=== PATIENT | male | born 1925 | race Caucasian/White ===

== ENCOUNTER 2017-07-12 22:21 | Inpatient (IN) | payer OTHER ==
--- NOTE | 2017-07-12 22:33 | EDPHY ---
H & P HPI/ROS: HPI CHIEF COMPLAINT: Nausea, vomiting, abdominal pain, bladder surgery yesterday at [facility]. HISTORY OF PRESENT ILLNESS: This patient 89-year-old male who presents emergency room with nausea vomiting x5 episodes nonbloody after having bladder surgery yesterday at [facility]. States he had surgery yesterday was kept overnight and released today. Upon being released felt nauseous and had vomiting. He denies chest pain or shortness of breath however the vomiting has persisted this evening. He does have a flank pain. And some suprapubic low abdominal pain. He tells me a bladder tumor removed. He has had surgery before. Past Medical History: Hypertension, hyperlipidemia, AAA surgery, renal CA, BPH , bladder CA Past Surgical History: AAA repair, bladder surgery Social History: Lives locally, son at bedside denies drugs alcohol tobacco products. Family History: Noncontributory. ROS REVIEW OF SYSTEMS: A comprehensive 10 point review of systems is otherwise negative aside from elements mentioned in the history of present illness. Exam Constitutional triage nursing summary reviewed, vital signs reviewed, awake/ alert. Eyes normal conjunctivae and sclera, EOMI, PERRLA. HENT normal inspection, atraumatic, moist mucus membranes, no epistaxis, neck supple/ no meningismus, no raccoon eyes. Respiratory clear to auscultation bilaterally, normal breath sounds, no respiratory distress, no wheezing. Cardiovascular rate normal, regular rhythm, no murmur, no edema, distal pulses normal. Gastrointestinal soft, non-tender, no rebound, no guarding, normal bowel sounds, no distension, no pulsatile mass. Genitourinary no CVA tenderness. Musculoskeletal no midline vertebral tenderness, full range of motion, no calf swelling, no tenderness of extremities, no meningismus, good pulses, neurovascularly intact. Skin pink, warm, & dry, no rash, skin atraumatic. Neurologic awake, alert and oriented x 3, AAOx3, moves all 4 extremities equally, motor intact, sensory intact, CN II-XII intact, normal cerebellar, normal vision, normal speech. Psychiatric normal mood/affect. Heme/Lymph/Immune no lymphadenopathy. Differential Diagnosis: Includes but is not limited to in a particular order bowel obstruction, surgical ileus, urinary tract infection, electrolyte disturbance, infection, sepsis, bacteremia Medical Decision Making: Plan for this patient IV establishment IV fluid bolus , Zofran for nausea, KUB x-ray, ultrasound kidney, blood work, and re-evaluate also consult Urology from [place]. Re-evaluation: 1245AM: Patient vomited again here in the emergency room. He has been given IV Zofran 4 mg x2. IV fluid bolus. It is noted he has an elevated creatinine and BUN. Urinalysis indicates UTI. Urine culture ordered. Blood cultures ordered. Lactic acid less than 2. He is afebrile. IV Rocephin has been ordered. Will consult Urology. I did receive records from [facility]. he was seen by Dr. Kris Lion, he has transitional cell carcinoma of the bladder. He underwent transurethral resection of large bladder tumor greater than 5 cm. He has a history of recurrent transitional cell carcinoma bladder. This was performed on July 11. 0107AM: Spoke with Dr. Lion, Recommends admission of this patient. Is okay with admission here. IV hydrate. CR 1.79. 0140AM: Patient remission. Reason for admission acute kidney injury, dehydration, urinary tract infection. Vital signs have been stable. No hypotension. Ordered 2 L of fluid normal saline 1 g of Rocephin. Spoke with the hospitalist service Dr. Anthony agrees to admit. Ultrasound of the renal. The results of the study are Right sided hydro I discussed the results of this study with the radiologist Dr. Villanueva. Source: Patient Constitutional: Initial Vital Signs Temperature (C) 36.5 C 07/12/17 22:31 Heart Rate 100 07/12/17 22:31 Respiratory Rate 20 07/12/17 22:31 Blood Pressure 161/83 H 07/12/17 22:31 O2 Sat (%) 93 07/12/17 22:31 O2 Delivery Mode Room Air O2 (L/minute) 2 Allergies/Adverse Reactions: mitomycin Allergy (Verified 07/12/17 22:30) Home Medications: Medication Instructions Recorded Diazepam [Valium 5 MG (*)] 5 mg PO TID 07/12/17 Hydrocodone/Acetaminophen [[place] 1 - 2 tab PO Q4H 07/12/17 5/325 (*)] Levothyroxine [Synthroid 75 mcg 75 mcg PO DAILY06 07/12/17 (*)] Ranitidine HCl [Zantac] 150 mg PO HS 07/12/17 Rosuvastatin Calcium [Crestor] 10 mg PO HS 07/12/17 Medical Decision Making - Data Points Laboratory Results: Laboratory Results 07/12/17 23:00 07/12/17 23:00 Medications Given: Acetaminophen (Tylenol) 650 mg PO Q4HRS PRN PRN Reason: Pain, Mild/Fever, Can Take PO Stop: 01/09/18 03:49 Last Admin: 07/13/17 12:42 Dose: 650 mg Hydrocodone Bitart/Acetaminophen ([place] 5/325) 2 tab PO Q4H RICARDO Stop: 07/23/17 18:29 Last Admin: 07/13/17 18:57 Dose: Not Given Heparin Sodium (Porcine) (Heparin Sc Injection) 5,000 unit SC 0600,1400,2200 [facility] Stop: 01/09/18 05:59 Last Admin: 07/13/17 14:11 Dose: Not Given Hydromorphone HCl (Dilaudid) 0.2 - 0.4 mg IVP Q4HRS PRN PRN Reason: Pain, Severe Unable to Take PO Stop: 07/23/17 03:49 Last Admin: 07/13/17 07:46 Dose: 0.2 mg Pantoprazole Sodium 40 mg/ (Sodium Chloride) 100 mls @ 200 mls/hr IV BID RICARDO Stop: 01/09/18 20:59 Last Admin: 07/13/17 20:33 Dose: 100 mls Ondansetron HCl (Zofran) 4 mg IVP Q4HRS PRN PRN Reason: Nausea/Vomiting, Can't Take PO Stop: 01/09/18 03:49 Last Admin: 07/13/17 18:08 Dose: 4 mg Rosuvastatin Calcium (Crestor) 10 mg PO HS [facility] Stop: 01/09/18 20:59 Last Admin: 07/13/17 20:33 Dose: 10 mg Discontinued Medications Sodium Chloride (Ns) 1,000 mls @ 0 mls/hr IV EDNOW ONE; Wide Open PRN Reason: Protocol Stop: 07/12/17 23:05 Last Admin: 07/12/17 23:11 Dose: 1,000 mls Ceftriaxone Sodium/Dextrose (Rocephin 1 Gm (Premix)) 50 mls @ 100 mls/hr IV EDNOW ONE PRN Reason: Protocol Stop: 07/13/17 00:50 Last Admin: 07/13/17 01:29 Dose: 50 mls Sodium Chloride (Ns) 1,000 mls @ 0 mls/hr IV ONCE ONE PRN Reason: Wide Open Stop: 07/13/17 01:09 Last Admin: 07/13/17 01:30 Dose: 1,000 mls Ondansetron HCl (Zofran) 4 mg IVP EDNOW ONE Stop: 07/12/17 22:44 Last Admin: 07/12/17 22:58 Dose: 4 mg Ondansetron HCl (Zofran) 4 mg IVP EDNOW ONE Stop: 07/13/17 00:24 Last Admin: 07/13/17 00:30 Dose: 4 mg Departure - Departure Disposition: [facility] Inpatient Acute Clinical Impression: KARINA (acute kidney injury), Dehydration UTI (urinary tract infection) Qualifiers: Urinary tract infection type: acute cystitis Hematuria presence: with hematuria Qualified Code(s): N30.01 - Acute cystitis with hematuria Condition: Fair
[2017-07-12] MEDS ORDERED: ONDANSETRON 4 MG/2 ML VIAL IVP ONE (22:43)
[2017-07-12] MEDS ORDERED: NS 1,000 ML IV ONE (23:04)
[2017-07-12 23:30] LABS: INR 1.13 (0.83-1.16); PROTIME(PATIENT) 14.4 SEC (12.0-15.0)
[2017-07-12 23:31] LABS: ALANINE AMINOTRANSFERASE 26 IU/L (21-72); ALKALINE PHOSPHATASE 65 IU/L (38-126); ANION GAP 14 mEq/L (8-16); ASPARTATE AMINOTRANSFERASE 22 IU/L (17-59); BILIRUBIN,TOTAL 0.4 mg/dL (0.1-1.4); BILIRUBIN-CONJUGATED 0.3 mg/dL (0.0-0.5); BILIRUBIN-UNCONJUGATED 0.1 mg/dL (0.0-1.1); CALCIUM 9.3 mg/dL (8.5-10.4); CARBON DIOXIDE 22 mEq/l (22-31); CHLORIDE 100 mEq/L (97-110); CREATININE 3.9 mg/dL (0.7-1.3); GLOMERULAR FILTRATION RATE 15; GLUCOSE 114 mg/dL (70-100); POTASSIUM 5.1 mEq/L (3.5-5.2); SODIUM 136 mEq/L (134-144); TOTAL PROTEIN 7.3 g/dL (6.3-8.2)
[2017-07-12 23:31] LABS: APTT 25.9 SEC (23.0-38.0)
[2017-07-12 23:32] LABS: % IMMATURE GRANULYOCYTES 0.2 % (0.0-1.1); ABSOLUTE IMMATURE GRANULOCYTES 0.01 10^3/uL (0.00-0.10); ADD DIFF? NO; ADD MORPH? NO; ADD SCAN? YES; ATYPICAL LYMPHOCYTE FLAG 0 (0-99); FRAGMENT RBC FLAG 0 (0-99); HEMATOCRIT 39.3 % (40.0-51.0); HEMOGLOBIN 13.3 g/dL (13.7-17.5); LIPEMIA HEMOLYSIS FLAG 90 (0-99); MEAN CELL HEMOGLOBIN 32.3 pg (27.9-34.1); MEAN CELL HEMOGLOBIN CONCENTR. 33.8 g/dL (32.4-36.7); MEAN CELL VOLUME 95.4 fL (81.5-99.8); MEAN PLATELET VOLUME 9.6 fL (8.7-11.7); PLATELET CLUMPS FLAG 30 (0-99); PLATELET COUNT 134 10^3/uL (150-400); RED BLOOD CELL COUNT 4.12 10^6/uL (4.40-6.38); RED CELL DISTRIBUTION WIDTH 13.6 % (11.5-15.2)
[2017-07-12 23:37] LABS: COLOR YELLOW; LEUKOCYTE ESTERASE,URINE 3+ (NEGATIVE); NITRITE,URINE NEGATIVE (NEGATIVE)
[2017-07-12 23:38] LABS: LEFT SHIFT FLG 120 (0-99)
[2017-07-12 23:44] LABS: BACTERIA 1+ /hpf (NONE SEEN); MUCUS TRACE /lpf (NONE-1+); RBC,URINE 50-182 /hpf (0-3); WBC,URINE 50-182 /hpf (0-3)
[2017-07-12 23:53] LABS: SCAN NEGATIVE
[2017-07-13] MEDS ORDERED: ONDANSETRON 4 MG/2 ML VIAL IVP ONE (00:23)
[2017-07-13] MEDS ORDERED: ONDANSETRON 4 MG/2 ML VIAL ONE (00:43)
[2017-07-13] MEDS ORDERED: NS 1,000 ML IV ONE (01:08)
[2017-07-13] MEDS ORDERED: ONDANSETRON DISINTEGRATING 4 MG TAB PO PRN (03:50)
[2017-07-13] MEDS ORDERED: PROMETHAZINE HCL 25 MG/ML INJ IVP PRN (03:50)
[2017-07-13] MEDS ORDERED: oxyCODONE IR 5 MG TAB PO PRN (03:50)
[2017-07-13] MEDS ORDERED: HYDROmorphONE/DILAUDID 1 MG/ML INJ IVP PRN (03:50)
--- NOTE | 2017-07-13 05:17 | PDGENHP ---
History and Physical - Chief Complaint Nausea - History of Present Illness 89 yo M w/ hx of TCC of the bladder presents with nausea. He underwent tumor debulking on 07/[address] Lion in [place]. He was monitor for one day and the discharge. Soon after discharge he began to experience R flank pain , nausea, and fatigue. He then came to [facility] ED. Upon arrival in ED he was noted to have significant KARINA and imaging consistent with ureteral obstruction. Upon my evaluation he is comfortable appearing with only mild nausea. History Information - Allergies/Home Medication List Allergies/Adverse Reactions: mitomycin Allergy (Verified 07/12/17 22:30) Home Medications: Crestor 07/12/17 [Last Taken Unknown] Levothyroxine 07/12/17 [Last Taken Unknown] [place] 5/325 (*) 07/12/17 [Last Taken Unknown] Ranitidine HCl 07/12/17 [Last Taken Unknown] Unknown Antibiotic 07/12/17 [Last Taken Unknown] Valium 07/12/17 [Last Taken Unknown] I have personally reviewed and updated: family history, medical history - Past Medical History cancer (TCC of the bladder) - Surgical History Additional surgical history: Multiple urologic procedures related to TCC diagnosis - Family History Positive for: cancer, CAD - Social History Smoking Status: Former smoker Alcohol Use: None Drug Use: None Review of Systems ROS: 10pt was reviewed & negative except for what was stated in HPI & below Physical Exam Temp Pulse Resp BP Pulse Ox 36.6 C 100 16 167/84 H 95 07/13/17 02:35 07/13/17 02:35 07/13/17 02:35 07/13/17 02:35 07/13/17 02:35 O2 (L/minute) 2 Constitutional: no apparent distress, chronically ill appearing Eyes: PERRL, EOMI Ears, Nose, Mouth, Throat: moist mucous membranes, no oral mucosal ulcers Cardiovascular: regular rate and rhythym, no murmur, rub, or gallop Respiratory: no respiratory distress, clear to auscultation Gastrointestinal: normoactive bowel sounds, tenderness (RLQ/R flank) Skin: warm, other (Erythema present in sacral area) Neurologic: AAOx3, CN II-XII Intact Psychiatric: interacting appropriately, not anxious Lab Data & Imaging Review 07/12/17 23:00 07/12/17 23:00 WBC 5.06 10^3/uL (3.80-9.50) 07/12/17 23:00 RBC 4.12 10^6/uL (4.40-6.38) L 07/12/17 23:00 Hgb 13.3 g/dL (13.7-17.5) L 07/12/17 23:00 Hct 39.3 % (40.0-51.0) L 07/12/17 23:00 MCV 95.4 fL (81.5-99.8) 07/12/17 23:00 MCH 32.3 pg (27.9-34.1) 07/12/17 23:00 MCHC 33.8 g/dL (32.4-36.7) 07/12/17 23:00 RDW 13.6 % (11.5-15.2) 07/12/17 23:00 Plt Count 134 10^3/uL (150-400) L 07/12/17 23:00 MPV 9.6 fL (8.7-11.7) 07/12/17 23:00 Neut % (Auto) 84.8 % (39.3-74.2) H 07/12/17 23:00 Lymph % (Auto) 4.9 % (15.0-45.0) L 07/12/17 23:00 [place] % (Auto) 9.7 % (4.5-13.0) 07/12/17 23:00 Eos % (Auto) 0.2 % (0.6-7.6) L 07/12/17 23:00 Baso % (Auto) 0.2 % (0.3-1.7) L 07/12/17 23:00 Nucleat RBC Rel Count 0.0 % (0.0-0.2) 07/12/17 23:00 Absolute Neuts (auto) 4.29 10^3/uL (1.70-6.50) 07/12/17 23:00 Absolute Lymphs (auto) 0.25 10^3/uL (1.00-3.00) L 07/12/17 23:00 Absolute Monos (auto) 0.49 10^3/uL (0.30-0.80) 07/12/17 23:00 Absolute Eos (auto) 0.01 10^3/uL (0.03-0.40) L 07/12/17 23:00 Absolute Basos (auto) 0.01 10^3/uL (0.02-0.10) L 07/12/17 23:00 Absolute Nucleated RBC 0.00 10^3/uL (0-0.01) 07/12/17 23:00 Immature Gran % 0.2 % (0.0-1.1) 07/12/17 23:00 Immature Gran # 0.01 10^3/uL (0.00-0.10) 07/12/17 23:00 PT 14.4 SEC (12.0-15.0) 07/12/17 23:30 INR 1.13 (0.83-1.16) 07/12/17 23:30 APTT 25.9 SEC (23.0-38.0) 07/12/17 23:30 VBG Lactic Acid 1.6 mmol/L (0.7-2.1) 07/12/17 23:00 Sodium 136 mEq/L (134-144) 07/12/17 23:00 Potassium 5.1 mEq/L (3.5-5.2) 07/12/17 23:00 Chloride 100 mEq/L (97-110) 07/12/17 23:00 Carbon Dioxide 22 mEq/l (22-31) 07/12/17 23:00 Anion Gap 14 mEq/L (8-16) 07/12/17 23:00 BUN 47 mg/dL (7-23) H 07/12/17 23:00 Creatinine 3.9 mg/dL (0.7-1.3) H 07/12/17 23:00 Estimated GFR 15 07/12/17 23:00 Glucose 114 mg/dL (70-100) H 07/12/17 23:00 Calcium 9.3 mg/dL (8.5-10.4) 07/12/17 23:00 Total Bilirubin 0.4 mg/dL (0.1-1.4) 07/12/17 23:00 Conjugated Bilirubin 0.3 mg/dL (0.0-0.5) 07/12/17 23:00 Unconjugated Bilirubin 0.1 mg/dL (0.0-1.1) 07/12/17 23:00 AST 22 IU/L (17-59) 07/12/17 23:00 ALT 26 IU/L (21-72) 07/12/17 23:00 Alkaline Phosphatase 65 IU/L (38-126) 07/12/17 23:00 Total Protein 7.3 g/dL (6.3-8.2) 07/12/17 23:00 Albumin 4.0 g/dL (3.5-5.0) 07/12/17 23:00 Lipase 200 IU/L (23-300) 07/12/17 23:00 Urine Color YELLOW 07/12/17 23:00 Urine Appearance HAZY 07/12/17 23:00 Urine pH 5.0 (5.0-7.5) 07/12/17 23:00 Ur Specific [place] 1.017 (1.002-1.030) 07/12/17 23:00 Urine Protein 2+ (NEGATIVE) H 07/12/17 23:00 Urine Ketones NEGATIVE (NEGATIVE) 07/12/17 23:00 Urine Blood 3+ (NEGATIVE) H 07/12/17 23:00 Urine Nitrate NEGATIVE (NEGATIVE) 07/12/17 23:00 Urine Bilirubin NEGATIVE (NEGATIVE) 07/12/17 23:00 Urine Urobilinogen NEGATIVE EU (0.2-1.0) 07/12/17 23:00 Ur Leukocyte Esterase 3+ (NEGATIVE) H 07/12/17 23:00 Urine RBC 50-182 /hpf (0-3) H 07/12/17 23:00 Urine WBC 50-182 /hpf (0-3) H 07/12/17 23:00 Ur Epithelial Cells NONE SEEN /lpf (NONE-1+) 07/12/17 23:00 Urine Bacteria 1+ /hpf (NONE SEEN) H 07/12/17 23:00 Urine Mucus TRACE /lpf (NONE-1+) 07/12/17 23:00 Urine Glucose NEGATIVE (NEGATIVE) 07/12/17 23:00 Imaging Review: U/S notable for significant R hydronephrosis. Assessment & Plan Assessment: 89 yo M w/ TCC of the bladder presents with ureteral obstruction after recent tumor debulking surgery. Plan: 1. Ureteral obstruction - Likely related to recent instrumentation and resulting inflammation. Primary urologist Dr. Lion is aware, who will discuss with nephrology team here. Will likely need nephrostomy tube or stent placed. - Maintain NPO - Will assure urology aware in the morning - Continue post-procedural prophylactic abx with CTX 1g qD (prescribed cipro as outpatient) 2. KARINA - Serum Cr 3.9 on admission. Post-renal etiology in the setting of above. Will need obstruction addressed, continue to monitor BMP. Urine sediment grossly abnormal but difficult to interpret noting cancer and recent instrumentation. 3. 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 Followed by Dr. Lion. 4. Nausea - Due to KARINA and obstruction, anti-emetics PRN.
[2017-07-13 05:29] LABS: ADD MORPH? NO; ADD SCAN? YES; ATYPICAL LYMPHOCYTE FLAG 0 (0-99); FRAGMENT RBC FLAG 0 (0-99); HEMATOCRIT 36.3 % (40.0-51.0); HEMOGLOBIN 12.1 g/dL (13.7-17.5); LIPEMIA HEMOLYSIS FLAG 80 (0-99); MEAN CELL HEMOGLOBIN 32.9 pg (27.9-34.1); MEAN CELL HEMOGLOBIN CONCENTR. 33.3 g/dL (32.4-36.7); MEAN CELL VOLUME 98.6 fL (81.5-99.8); MEAN PLATELET VOLUME 9.3 fL (8.7-11.7); PLATELET CLUMPS FLAG 0 (0-99); PLATELET COUNT 119 10^3/uL (150-400); RED BLOOD CELL COUNT 3.68 10^6/uL (4.40-6.38); RED CELL DISTRIBUTION WIDTH 13.6 % (11.5-15.2)
[2017-07-13 05:43] LABS: ANION GAP 11 mEq/L (8-16); CALCIUM 8.5 mg/dL (8.5-10.4); CARBON DIOXIDE 22 mEq/l (22-31); CHLORIDE 103 mEq/L (97-110); GLOMERULAR FILTRATION RATE 14; GLUCOSE 117 mg/dL (70-100); POTASSIUM 5.5 mEq/L (3.5-5.2); SODIUM 136 mEq/L (134-144)
[2017-07-13 05:47] LABS: LEFT SHIFT FLG 140 (0-99)
[2017-07-13 07:11] LABS: ADD DIFF? YES; SCAN POSITIVE
[2017-07-13 07:17] LABS: PLATELET ESTIMATE DECREASED (ADEQ)
[2017-07-13] MEDS: ONDANSETRON 4 MG/2 ML VIAL IVP PRN ×3 (07:48→18:08)
[2017-07-13] MEDS: HEPARIN 5,000 UNIT/0.5 ML SYR SC SCH ×3 (07:49→23:20)
[2017-07-13] MEDS: ACETAMINOPHEN 325 MG TAB PO PRN ×2 (07:58→12:42)
[2017-07-13] MEDS ORDERED: ENOXAPARIN 40 MG/0.4 ML SYR SC SCH (09:00)
[2017-07-13] MEDS ORDERED: IOPAMIDOL (ISOVUE-300) 100 ML BTL ONE (14:47)
[2017-07-13] MEDS ORDERED: LIDOCAINE 1% 300 MG/30 ML SDV ONE (14:48)
[2017-07-13] MEDS ORDERED: MIDAZOLAM 2 MG/2 ML VIAL ONE (15:27)
[2017-07-13] MEDS ORDERED: fentaNYL 100 MCG/2 ML INJ ONE (15:27)
[2017-07-13] MEDS ORDERED: FLUMAZENIL 0.5 MG/5 ML MDV IVP ONE (15:27)
[2017-07-13] MEDS ORDERED: NALOXONE HCL 0.4 MG/ML INJ ONE (15:27)
--- NOTE | 2017-07-13 16:00 | POSTOPPROG ---
Post Op Note Date of Operation: 07/13/17 Surgeon: Altaf Gordon Anesthesia: IV Sedation Pre-op Diagnosis: Bladder CA. Left nephrectomy. Post-op Diagnosis: Distal right ureteral obstruction Indication: Severe right hydronephrosis, renal failure Procedure: Percutaneous right nephrostomy. Findings: Total obstruction distal right ureter. Inf/Abcess present in the surg proc area at time of surgery?: No Complications: 0 Drains: Nephrostomy (10F) Specimen(s): 20 ml minimally turbid urine sent to lab for microbiology.
--- NOTE | 2017-07-13 16:40 | HOSPPROG ---
Hospitalist Progress Note Assessment/Plan: DIAGNOSES: -acute renal failure -acute obstructive uropathy -bladder cancer as cause of the above -currently no signs of infection PLANS: The patient will have percutaneous nephrostomy done later today by Dr. Gordon SUBJECTIVE: Patient still with the same presenting symptoms, unchanged at this time. No new symptoms OBJECTIVE Vitals reviewed: Stable without fever Field Enumerator, my review: Sinus rhythm Exam: alert oriented skin warm dry color ok resps not labored lungs clear BSs heart regular abd soft nondistended nontender, bowel sounds present limbs warm, no edema iv site ok Objective: Vital Signs Temp Pulse Resp BP Pulse Ox 36.4 C 116 H 16 133/93 H 92 07/13/17 16:08 07/13/17 16:08 07/13/17 16:08 07/13/17 16:08 07/13/17 16:08 Laboratory Results 07/13/17 05:12 07/13/17 05:12 07/12/17 07/13/17 07/14/17 06:59 06:59 06:59 Intake Total 1650 50 Output Total 450 900 Balance 1200 -850 PT 14.4 SEC (12.0-15.0) 07/12/17 23:30 INR 1.13 (0.83-1.16) 07/12/17 23:30 ICD10 Worksheet Patient Problems: Problems Problem Status Onset KARINA (acute kidney injury) Acute Dehydration Acute UTI (urinary tract infection) Acute 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
--- NOTE | 2017-07-13 16:49 | ASMTCASEMG ---
Discharge Plan Comments Coordination Status Comments Notes: Reviewed chart, spoke w/RN, unable to meet w/pt due to procedure scheduled for today. Pt has strong family support. D/c needs unclear at this time. 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 No orders for PT or OT. RN reports high O2 needs w/probable need for home O2 at d/c. RN to contact respiratory therapy. Case management to follow. Date Signed: 07/13/2017 04:48 PM Electronically Signed By:Jewels Brennan
[2017-07-13 18:56] LABS: ADD DIFF? NO; ADD MORPH? NO; ADD SCAN? YES; ATYPICAL LYMPHOCYTE FLAG 0 (0-99); FRAGMENT RBC FLAG 0 (0-99); HEMOGLOBIN 11.1 g/dL (13.7-17.5); LIPEMIA HEMOLYSIS FLAG 80 (0-99); MEAN PLATELET VOLUME 9.7 fL (8.7-11.7)
[2017-07-13] MEDS: HYDROCODONE/APAP 5/325 TAB PO SCH ×2 (18:57→23:42)
[2017-07-13 19:01] LABS: % IMMATURE GRANULYOCYTES 0.6 % (0.0-1.1); ABSOLUTE IMMATURE GRANULOCYTES 0.04 10^3/uL (0.00-0.10); HEMATOCRIT 33.2 % (40.0-51.0); MEAN CELL HEMOGLOBIN 32.9 pg (27.9-34.1); MEAN CELL HEMOGLOBIN CONCENTR. 33.4 g/dL (32.4-36.7); MEAN CELL VOLUME 98.5 fL (81.5-99.8); PLATELET CLUMPS FLAG 0 (0-99); PLATELET COUNT 109 10^3/uL (150-400); RED BLOOD CELL COUNT 3.37 10^6/uL (4.40-6.38); RED CELL DISTRIBUTION WIDTH 13.9 % (11.5-15.2)
[2017-07-13 19:02] LABS: LEFT SHIFT FLG 230 (0-99)
[2017-07-13 19:20] LABS: SCAN POSITIVE
[2017-07-13 19:30] LABS: PLATELET ESTIMATE DECREASED (ADEQ)
[2017-07-13] MEDS: PANTOPRAZOLE SODIUM 40 MG in NS 100 ML IV SCH (20:33)
[2017-07-13] MEDS: ROSUVASTATIN CALCIUM 10 MG TAB PO SCH (20:33)
[2017-07-13] MEDS: DIAZEPAM 5 MG TAB PO SCH (23:42)
[2017-07-14] MEDS: NS 1,000 ML IV SCH ×3 (01:12→19:20)
[2017-07-14] MEDS: HYDROCODONE/APAP 5/325 TAB PO SCH ×6 (04:04→20:27)
[2017-07-14] MEDS ORDERED: MAGNESIUM SULF 1 GM/DEXTROSE 100 ML IV ONE ×2 (04:30→05:40)
[2017-07-14] MEDS ORDERED: MAGNESIUM SULF 1 GM/DEXTROSE 100 ML BAG IV ONE (04:33)
[2017-07-14] MEDS ORDERED: NS BOLUS 1000 ML (Wide open) IV ONE (04:40)
--- NOTE | 2017-07-14 04:47 | CPEKG ---
Heart Rate: 125 RR Interval: 480 P-R Interval: 152 QRSD Interval: 74 QT Interval: 292 QTC Interval: 421 P Carson: 8 QRS Carson: -17 T Wave Carson: 65 EKG Severity - ABNORMAL ECG - EKG Impression: SINUS TACHYCARDIA EKG Impression: MULTIPLE VENTRICULAR PREMATURE COMPLEXES EKG Impression: BORDERLINE LEFT AXIS DEVIATION EKG Impression: BORDERLINE T ABNORMALITIES, ANT-LAT LEADS Electronically Signed By: Tre Ross 14-Jul-2017 13:15:03
[2017-07-14 04:56] LABS: % IMMATURE GRANULYOCYTES 0.7 % (0.0-1.1); ABSOLUTE IMMATURE GRANULOCYTES 0.04 10^3/uL (0.00-0.10); ADD DIFF? NO; ADD MORPH? NO; ADD SCAN? YES; ATYPICAL LYMPHOCYTE FLAG 0 (0-99); FRAGMENT RBC FLAG 0 (0-99); HEMATOCRIT 31.3 % (40.0-51.0); HEMOGLOBIN 10.5 g/dL (13.7-17.5); LIPEMIA HEMOLYSIS FLAG 80 (0-99); MEAN CELL HEMOGLOBIN 32.9 pg (27.9-34.1); MEAN CELL HEMOGLOBIN CONCENTR. 33.5 g/dL (32.4-36.7); MEAN CELL VOLUME 98.1 fL (81.5-99.8); MEAN PLATELET VOLUME 9.9 fL (8.7-11.7); PLATELET CLUMPS FLAG 0 (0-99); PLATELET COUNT 115 10^3/uL (150-400); RED BLOOD CELL COUNT 3.19 10^6/uL (4.40-6.38); RED CELL DISTRIBUTION WIDTH 13.9 % (11.5-15.2)
[2017-07-14 04:58] LABS: ANION GAP 7 mEq/L (8-16); CALCIUM 8.5 mg/dL (8.5-10.4); CARBON DIOXIDE 22 mEq/l (22-31); CHLORIDE 110 mEq/L (97-110); GLOMERULAR FILTRATION RATE 32; GLUCOSE 84 mg/dL (70-100); MAGNESIUM 2.1 mg/dL (1.6-2.3); POTASSIUM 4.7 mEq/L (3.5-5.2); SODIUM 139 mEq/L (134-144)
[2017-07-14 05:00] LABS: LEFT SHIFT FLG 250 (0-99)
[2017-07-14] MEDS: HEPARIN 5,000 UNIT/0.5 ML SYR SC SCH ×3 (05:00→20:27)
[2017-07-14] MEDS: LEVOTHYROXINE 75 MCG TAB PO SCH (05:01)
[2017-07-14 05:27] LABS: SCAN POSITIVE
[2017-07-14 05:32] LABS: PLATELET ESTIMATE DECREASED (ADEQ)
[2017-07-14] MEDS: DIAZEPAM 5 MG TAB PO SCH ×2 (09:36→16:21)
--- NOTE | 2017-07-14 10:05 | HOSPPROG ---
Hospitalist Progress Note Assessment/Plan: DIAGNOSES: -acute renal failure -acute obstructive uropathy, now s/p perc nephrostomy with good drainage -post obstructive diuresis -bladder cancer as cause of the above -acute sinus tachycardia, ? due to fluid loss or other -?coffee ground emesis, not witness by MD staff; some decrease in Hg but ? if dilutional -currently no signs of infection PLANS: -continue IV fluids -follow vital signs and creatinine closely -follow for any other sign of bleeding; hemocult ordered -follow Hg -continue PPI for now SUBJECTIVE: feels better overall, no pain, no nausea had an emesis last evening and nurses were concerned about coffee ground appearance, not seen by MD staff and sample was not saved to test for heme no emesis or signs of bleeding since OBJECTIVE Vitals reviewed: Stable without fever Proof Carrier, my review: Sinus rhythm Exam: alert oriented skin warm dry color ok resps not labored lungs clear BSs heart regular abd soft nondistended nontender, bowel sounds present nephrostomy in place draining clear yellow urine lopez (from prior surgery in [place]) draining blood tinged urine limbs warm, no edema iv site ok Objective: Vital Signs Temp Pulse Resp BP Pulse Ox 36.9 C 117 H 17 111/57 L 91 L 07/14/17 07:55 07/14/17 07:55 07/14/17 07:55 07/14/17 07:55 07/14/17 07:55 Microbiology 07/13/17 15:50 Gram Stain - Final Other - Aspirate Laboratory Results 07/14/17 03:59 07/14/17 04:28 07/13/17 07/14/17 07/15/17 06:59 06:59 06:59 Intake Total 1650 910 Output Total 450 2590 540 Balance 1200 -1680 -540 PT 14.4 SEC (12.0-15.0) 07/12/17 23:30 INR 1.13 (0.83-1.16) 07/12/17 23:30 ICD10 Worksheet Patient Problems: Problems Problem Status Onset KARINA (acute kidney injury) Acute Dehydration Acute UTI (urinary tract infection) Acute 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
--- NOTE | 2017-07-14 10:15 | HOSPPROG ---
Hospitalist Progress Note Assessment/Plan: DIAGNOSES: -acute renal failure -acute obstructive uropathy, now s/p perc nephrostomy with good drainage -post obstructive diuresis -bladder cancer as cause of the above -acute sinus tachycardia, ? due to fluid loss or other -?coffee ground emesis, not witness by MD staff; some decrease in Hg but ? if dilutional -currently no signs of infection PLANS: -check orthostatic vital signs, may need some fluid bolusing -continue IV fluids -follow vital signs and creatinine closely -follow for any other sign of bleeding; hemocult ordered -follow Hg -continue PPI for now SUBJECTIVE: feels better overall, no pain, no nausea had an emesis last evening and nurses were concerned about coffee ground appearance, not seen by MD staff and sample was not saved to test for heme no emesis or signs of bleeding since OBJECTIVE Vitals reviewed: Sinus tachycardia, otherwise stable without fever Business Specialist, my review: Sinus rhythm Exam: alert oriented skin warm dry color ok resps not labored lungs clear BSs heart regular abd soft nondistended nontender, bowel sounds present nephrostomy in place draining clear yellow urine lopez (from prior surgery in [place]) draining blood tinged urine limbs warm, no edema iv site ok Objective: Vital Signs Temp Pulse Resp BP Pulse Ox 36.9 C 117 H 17 111/57 L 91 L 07/14/17 07:55 07/14/17 07:55 07/14/17 07:55 07/14/17 07:55 07/14/17 07:55 Microbiology 07/13/17 15:50 Gram Stain - Final Other - Aspirate Laboratory Results 07/14/17 03:59 07/14/17 04:28 07/13/17 07/14/17 07/15/17 06:59 06:59 06:59 Intake Total 1650 910 Output Total 450 2590 540 Balance 1200 -1680 -540 PT 14.4 SEC (12.0-15.0) 07/12/17 23:30 INR 1.13 (0.83-1.16) 07/12/17 23:30 ICD10 Worksheet Patient Problems: Problems Problem Status Onset KARINA (acute kidney injury) Acute Dehydration Acute UTI (urinary tract infection) Acute 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
[2017-07-14] MEDS: PANTOPRAZOLE SODIUM 40 MG in NS 100 ML IV SCH ×2 (11:11→20:27)
--- NOTE | 2017-07-14 11:52 | ASMTCMCOM ---
CM Note CM Note Notes: Met w/pt and daughter Maryjane Jiménez ([phone]) who is visiting from [place]. Son Iftikhar Kraft lives locally and can be reached at [phone]. Pt lives at [facility] and utilizes house keeping services, has meals at the dining room, buys groceries and prepares own breakfast. Discussed discharge recommendations. Pt agrees home health RN is necessary for assessment and monitoring of nephrostomy tube. In addition pt requested AIDS COUNSELOR services for assistance w/ADL's. Case Management d/c poc: Home to [facility] w/ home health RN and AIDS COUNSELOR. Faxed referrals to several home health agencies, waiting to hear if pt has been accepted. Case Management to follow. Date Signed: 07/14/2017 11:52 AM Electronically Signed By:Jewels Brennan
[2017-07-14 19:07] LABS: COLOR YELLOW; LEUKOCYTE ESTERASE,URINE NEGATIVE (NEGATIVE); NITRITE,URINE NEGATIVE (NEGATIVE)
[2017-07-14 19:09] LABS: MUCUS TRACE /lpf (NONE-1+); RBC,URINE 50-182 /hpf (0-3)
[2017-07-14] MEDS: ROSUVASTATIN CALCIUM 10 MG TAB PO SCH (20:27)
[2017-07-15] MEDS: DIAZEPAM 5 MG TAB PO SCH ×4 (00:46→19:44)
[2017-07-15 04:08] LABS: % IMMATURE GRANULYOCYTES 0.4 % (0.0-1.1); ABSOLUTE IMMATURE GRANULOCYTES 0.02 10^3/uL (0.00-0.10); ADD DIFF? NO; ADD MORPH? NO; ADD SCAN? YES; ATYPICAL LYMPHOCYTE FLAG 0 (0-99); FRAGMENT RBC FLAG 0 (0-99); HEMATOCRIT 25.5 % (40.0-51.0); HEMOGLOBIN 8.4 g/dL (13.7-17.5); LIPEMIA HEMOLYSIS FLAG 80 (0-99); MEAN CELL HEMOGLOBIN 33.1 pg (27.9-34.1); MEAN CELL HEMOGLOBIN CONCENTR. 32.9 g/dL (32.4-36.7); MEAN CELL VOLUME 100.4 fL (81.5-99.8); MEAN PLATELET VOLUME 10.1 fL (8.7-11.7); PLATELET CLUMPS FLAG 0 (0-99); PLATELET COUNT 90 10^3/uL (150-400); RED BLOOD CELL COUNT 2.54 10^6/uL (4.40-6.38)
[2017-07-15 04:13] LABS: LEFT SHIFT FLG 100 (0-99)
[2017-07-15 04:23] LABS: ANION GAP 6 mEq/L (8-16); CALCIUM 7.8 mg/dL (8.5-10.4); CARBON DIOXIDE 21 mEq/l (22-31); CHLORIDE 111 mEq/L (97-110); CREATININE 1.2 mg/dL (0.7-1.3); GLOMERULAR FILTRATION RATE 57; GLUCOSE 78 mg/dL (70-100); POTASSIUM 4.3 mEq/L (3.5-5.2); SODIUM 138 mEq/L (134-144)
[2017-07-15 04:30] LABS: SCAN POSITIVE
[2017-07-15] MEDS: HYDROCODONE/APAP 5/325 TAB PO SCH ×6 (04:32→19:42)
[2017-07-15 04:35] LABS: PLATELET ESTIMATE DECREASED (ADEQ)
[2017-07-15] MEDS: HEPARIN 5,000 UNIT/0.5 ML SYR SC SCH (05:33)
[2017-07-15] MEDS: LEVOTHYROXINE 75 MCG TAB PO SCH (05:36)
[2017-07-15] MEDS: NS 1,000 ML IV SCH ×2 (05:36→19:06)
[2017-07-15] MEDS: PANTOPRAZOLE SODIUM 40 MG in NS 100 ML IV SCH (08:25)
--- NOTE | 2017-07-15 10:49 | HOSPPROG ---
Hospitalist Progress Note Assessment/Plan: This patient presented here with obstructive uropathy after tumor removal surgery from his bladder at [facility]. 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 He has clear urine from nephrostomy and still grossly bloody urine from lopez. He had on 07/13 a possible coffee ground emesis which was not seen by MD staff. PPI was started. Since then he has had no further visible bleeding (so stools passed) but is having orthostatic symptoms and numbers and a decreasing Hg. ? if the drop in Hg is from stomach or bladder or both. DIAGNOSES: -worsening anemia, presumed post hemorrhagic, with suspected GI bleed, and with some gross hematuria as well -acute renal failure, resolving well with nephrostomy drainage -acute obstructive uropathy, now s/p perc nephrostomy with good drainage -post obstructive diuresis -bladder cancer as cause of the above -acute sinus tachycardia, ? due to fluid loss or other -?coffee ground emesis, not witness by MD staff; some decrease in Hg but ? if dilutional -currently no signs of infection PLANS: -follow orthostatic vital signs -continue IV fluids -follow vital signs and creatinine closely -follow for any other sign of bleeding; hemocult ordered and still pending -recheck Hg this afternoon -continue PPI for now -will consult gastroenterology -will hold DVT prophylaxis med for now -blood sample for T&C -percutaneous nephrostomy and lopez caths must stay in here and at discharge and he should follow up with his urologist in [place] after discharge SUBJECTIVE: feels fairly wobbly on feet which is unusual for him no abd pain no flank pain no fever sxs he has had no more vomiting, no stool, and no other visible bleed besides what is in urine OBJECTIVE Vitals reviewed: stable at rest but still w fairly marked orthostatic blood pressure drops Planishing Hammer Operator, my review: Sinus rhythm Exam: alert oriented skin warm dry pale resps not labored lungs clear BSs heart regular abd soft nondistended nontender, bowel sounds present nephrostomy in place draining clear yellow urine lopez (from prior surgery in [place]) draining blood tinged urine limbs warm, no edema iv site ok Objective: Vital Signs Temp Pulse Resp BP Pulse Ox 36.6 C 88 14 115/60 95 07/15/17 07:35 07/15/17 07:35 07/15/17 07:35 07/15/17 07:35 07/15/17 07:35 Microbiology 07/13/17 15:50 Gram Stain - Final Other - Aspirate Laboratory Results 07/15/17 03:20 07/15/17 03:20 07/14/17 07/15/17 07/16/17 06:59 06:59 06:59 Intake Total 910 3475 Output Total 7610 2915 Balance -1680 560 PT 14.4 SEC (12.0-15.0) 07/12/17 23:30 INR 1.13 (0.83-1.16) 07/12/17 23:30 ICD10 Worksheet Patient Problems: Problems Problem Status Onset KARINA (acute kidney injury) Acute Dehydration Acute UTI (urinary tract infection) Acute 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
[2017-07-15] MEDS ORDERED: BISACODYL 10 MG SUPP PR PRN (11:24)
[2017-07-15] MEDS ORDERED: LACTULOSE 20 GM/30 ML UDCUP PO PRN (11:24)
[2017-07-15] MEDS ORDERED: POLYETHYLENE GLYCOL 3350 17 GM PKT PO PRN (11:24)
[2017-07-15] MEDS ORDERED: MAGNESIUM HYDROXIDE 30 ML UDCUP PO PRN (11:24)
[2017-07-15 12:57] LABS: HEMATOCRIT 29.3 % (40.0-51.0); HEMOGLOBIN 9.6 g/dL (13.7-17.5)
[2017-07-15] MEDS: SENNOSIDES/DOCUSATE SODIUM TAB PO SCH ×2 (13:23→19:42)
[2017-07-15] MEDS: ROSUVASTATIN CALCIUM 10 MG TAB PO SCH (19:42)
[2017-07-15] MEDS: PANTOPRAZOLE SODIUM 40 MG TAB PO SCH (19:42)
[2017-07-16] MEDS: HYDROCODONE/APAP 5/325 TAB PO SCH ×4 (04:07→16:19)
[2017-07-16 04:38] LABS: % IMMATURE GRANULYOCYTES 0.8 % (0.0-1.1); ABSOLUTE IMMATURE GRANULOCYTES 0.04 10^3/uL (0.00-0.10); ADD DIFF? NO; ADD MORPH? NO; ADD SCAN? NO; ATYPICAL LYMPHOCYTE FLAG 10 (0-99); FRAGMENT RBC FLAG 0 (0-99); HEMATOCRIT 24.1 % (40.0-51.0); HEMOGLOBIN 8.2 g/dL (13.7-17.5); LEFT SHIFT FLG 70 (0-99); LIPEMIA HEMOLYSIS FLAG 90 (0-99); MEAN CELL HEMOGLOBIN 32.9 pg (27.9-34.1); MEAN CELL VOLUME 96.8 fL (81.5-99.8); MEAN PLATELET VOLUME 10.3 fL (8.7-11.7); PLATELET CLUMPS FLAG 10 (0-99); PLATELET COUNT 86 10^3/uL (150-400); RED BLOOD CELL COUNT 2.49 10^6/uL (4.40-6.38); RED CELL DISTRIBUTION WIDTH 13.6 % (11.5-15.2)
[2017-07-16 04:51] LABS: ANION GAP 9 mEq/L (8-16); CALCIUM 7.9 mg/dL (8.5-10.4); CARBON DIOXIDE 20 mEq/l (22-31); CHLORIDE 108 mEq/L (97-110); CREATININE 1.1 mg/dL (0.7-1.3); GLOMERULAR FILTRATION RATE > 60; GLUCOSE 70 mg/dL (70-100); SODIUM 137 mEq/L (134-144)
[2017-07-16] MEDS: LEVOTHYROXINE 75 MCG TAB PO SCH (05:10)
[2017-07-16] MEDS ORDERED: ADENOSINE 6 MG/2 ML VIAL ONE ×2 (07:21→07:28)
[2017-07-16] MEDS ORDERED: DILTIAZEM 25 MG/5 ML VIAL IVP ONE ×2 (07:40→13:15)
--- NOTE | 2017-07-16 07:40 | CPEKG ---
Heart Rate: 189 RR Interval: 317 QRSD Interval: 74 QT Interval: 252 QTC Interval: 448 QRS [place]: -7 T Wave [place]: 88 EKG Severity - ABNORMAL ECG - EKG Impression: ATRIAL FIBRILLATION WITH RAPID V-RATE EKG Impression: ABERRANT COMPLEX, POSSIBLY SUPRAVENTRICULAR EKG Impression: REPOLARIZATION ABNORMALITY, PROB RATE RELATED EKG Impression: COMPARED WITH 07/14/2017, ATRIAL FIBRILLATION NOW PRESENT AND REPOLARIZATION EKG Impression: ABNORMALITY NOW NOTED Electronically Signed By: Willa Batista 16-Jul-2017 10:25:52
[2017-07-16] MEDS ORDERED: DILTIAZEM HCL/D5W 125 ML IV SCH (08:00)
--- NOTE | 2017-07-16 11:40 | ECHO ---
[id number] + + [address] : : [place] [address] : : [phone] + + Adult Echocardiographic Report + ---+ :Name: SAIDA CHRISTIE Berenice Date: 07/16/2017 08:59 AM : : Hospital Admission Number: [id number] Location: 202: :: 1925 Gender: Male : :Age: 89 yrs Race: WH : :Reason For Study: Atrial Fibrillation : + ---+ MMode/2D Measurements \T\ Calculations IVSd: 0.68 cm LVIDd: 5.4 cm FS: 38.3 % Ao root diam: LVPWd: 0.82 cm LVIDs: 3.4 cm EDV(Teich): 4.5 cm 143.9 ml LA dimension: ESV(Teich): 46.0 ml 3.4 cm EF(Teich): 68.0 % LVOT diam: 2.2 cmLVLd ap4: 8.6 cm SV(MOD-sp4): LVOT area: EDV(MOD-sp4): 45.0 ml 58.0 ml 3.6 cm2 LVLs ap4: 7.0 cm ESV(MOD-sp4): 13.0 ml EF(MOD-sp4): 77.6 % Normal Measurement Values: + + :LVIDd (3.5-5.7cm) IVSd (0.6-1.1cm) LVPWd (0.6-1.1cm) Aortic Root (2.0-3.7cm)Left Atrium (1.5-4.0cm): :LV Vol(d) (76-115ml) LV Vol(s) (29-48ml) Ejec Fraction (50-65%)PV Yong (0.6- 1.2m/s) TV Yong (0.4-1.0m/s) : :MV E Yong (0.8-1.0m/s)MV A Yong (0.3-1.0m/s)LVOT Yong (0.7-1.2m/s) Asc Ao Yong ( 0.9-1.8m/s) : + + Doppler Measurements \T\ Calculations MV E max yong: Ao mean PG: LV V1 mean PG: SV(LVOT): 86.9 cm/sec 11.8 mmHg 1.5 mmHg 66.1 ml MV A max yong: Ao V2 mean: LV V1 mean: 117.0 cm/sec 165.8 cm/sec 56.1 cm/sec MV E/A: 0.74 Ao V2 VTI: 43.2 cm LV V1 VTI: 18.2 cm JOSE MANUEL(I,D): 1.5 cm2 TR max yong: 282.0 cm/sec TR max P.8 mmHg RAP systole: 5.0 mmHg RVSP(TR): 36.8 mmHg Left Ventricle The left ventricle is normal in size. There is normal left ventricular wall thickness. Left ventricular systolic function is normal. Ejection Fraction = 65-70%. No regional wall motion abnormalities noted. Right Ventricle The right ventricle is normal in size and function. Atria The left atrial size is normal. Right atrial size is normal. The interatrial septum is intact with no evidence for an atrial septal defect. Mitral Valve The mitral valve is normal in structure and function. There is no evidence of mitral valve prolapse. There is no mitral valve stenosis. There is mild mitral regurgitation. Tricuspid Valve Normal tricuspid valve. There is trace tricuspid regurgitation. Right ventricular systolic pressure is normal. Aortic Valve Moderate aortic calcification. AV max PG is 19mmHG. AV mean PG is 11mmHG. Mild valvular aortic stenosis. Trace aortic regurgitation. Pulmonic Valve The pulmonic valve is normal in structure and function. There is no pulmonic valvular regurgitation. Great Vessels The aortic root is normal size. Pericardium/Pleural There is no pericardial effusion. Left pleural effusion. Conclusion A complete two-dimensional transthoracic echocardiogram was performed (2D, M-mode, Doppler and color flow Doppler). Left ventricular systolic function is normal. Ejection Fraction = 65-70%. There is mild mitral regurgitation. There is trace tricuspid regurgitation. Right ventricular systolic pressure is normal. Moderate aortic calcification. Mild valvular aortic stenosis. AV max PG is 19mmHG. AV mean PG is 11mmHG. Trace aortic regurgitation. Left pleural effusion. Final Reading Physician: Corby Lam signed on 07/16/2017 11:38 AM Ordering Physician: Tian Anthony Performed By: Melissa Garza RDCS
[2017-07-16] MEDS ORDERED: ADENOSINE 6 MG/2 ML VIAL IVP ONE ×2 (13:15)
--- NOTE | 2017-07-16 13:27 | GCON ---
[f rep st] CONSULTATION INPATIENT CONSULTATION NOTE REFERRING PHYSICIAN: Ermias Salamanca MD REASON FOR CONSULTATION: Anemia. CHIEF COMPLAINT: Fatigue. HISTORY OF PRESENT ILLNESS: Briefly, the patient is an 89-year-old male who was admitted to the [facility] on 07/12/2017 for the evaluation of fatigue, malaise, and abdominal discomfort. On the day pr ior to admission, he had undergone a transurethral debulking procedure for a bladder cancer. His wo rkup was notable for the development of a ureteral obstruction. He is now status post decompression with nephrostomy tube placement and stent placement. He has had gradual resolution of his pelvic c omplaints, acute renal failure, and presenting abdominal complaints. During his hospital stay, [facility], it has been noted that his hematocrit has been falling. On admission, his hematocrit was 39.3. Today it is 24.1. On the day of admission, he had 1 episode of emesis that was potentially coffee -ground in nature. He has had no bowel movement since prior to his surgery. He had a significant d egree of hematuria, but that has been resolved for 2 or 3 days. It is not felt that his hematocrit fall could be explained by gross hematuria. He reports no heartburn. He is tolerating oral food, a lthough has very low appetite. He has not had any melena. He has had only 1 episode of possible co ffee-grounds. He denies any previous history of GI complaints. He denies heartburn or indigestion chronically. H e reports normal bowel movements typically. PAST MEDICAL HISTORY: Includes transitional cell carcinoma of the bladder. PAST SURGICAL HISTORY: Includes multiple urologic procedures. FAMILY HISTORY: Includes coronary artery disease. SOCIAL HISTORY: He is a former smoker but does not use drugs or drink alcohol. MEDICATIONS: His home medicines are Crestor, levothyroxine, Lem[place], ranitidine, Valium, and periproc edural antibiotics. REVIEW OF SYSTEMS: A complete 10-system review was undertaken with the patient and is negative, exc ept for those details described in the History of Present Illness. ALLERGIES: Mitomycin. PHYSICAL EXAM: GENERAL: This is an elderly male in no apparent distress. HEENT: His pupils are e qual, round, reactive to light and accommodation. His sclerae are nonicteric. His oropharynx is cl ear. NECK: Supple, without lymphadenopathy. HEART: Regular, without murmur. ABDOMEN: Soft, non tender, with normoactive bowel sounds. EXTREMITIES: Free of cyanosis, clubbing, and edema. NEURO: Grossly nonfocal. SKIN: Reveals no bruising. MUSCULOSKELETAL: His joints show no arthritis. P SYCH: Exam reveals normal mood and affect. LABORATORY TESTING: Hemoglobin of 8.4, hematocrit of 25.5, MCV of 100.4, platelet count of 90. Sod ium of 137, potassium of 4.0, chloride of 108, bicarb of 20, BUN of 16, creatinine of 1.1. Liver fu nction tests were normal. IMPRESSION AND RECOMMENDATIONS: The patient has been admitted to the hospital for the management of complications related to a recent bladder surgery. His hospital course has been notable for a grad ually declining hematocrit. The etiology for his gradually declining hematocrit is uncertain. He m ay have had some GI blood losses from nausea and vomiting. It is not felt that his hematocrit fall can be explained by his bladder-related bleeding. The differential diagnosis might include intraabdominal bleeding sources postoperatively, a combinat ion of gross hematuria and IV rehydration, a hemolytic process, or GI blood loss. Given his episode of hematemesis, it is worthwhile to consider GI sources of blood loss. Although, typically, if a p atient has had this degree of fall in hematocrit, there is a more obvious display of clinical bleedi ng. At this time, I recommend the patient undergo upper endoscopy. Pending his clinical course, we could even consider colonoscopy. Of note, he has not had a bowel movement for several days; laxative therapies may be beneficial as nena hansen. /[id number]/MODL
[2017-07-16] MEDS: DIAZEPAM 5 MG TAB PO SCH (13:36)
[2017-07-16] MEDS: PANTOPRAZOLE SODIUM 40 MG TAB PO SCH ×2 (13:37→20:35)
[2017-07-16] MEDS: SENNOSIDES/DOCUSATE SODIUM TAB PO SCH ×2 (13:38→20:35)
[2017-07-16] MEDS ORDERED: DIAZEPAM 5 MG TAB PO PRN (14:43)
[2017-07-16] MEDS ORDERED: HYDROCODONE/APAP 5/325 TAB PO PRN (14:43)
[2017-07-16] MEDS ORDERED: AMIODARONE HCL 100 ML IV ONE (14:43)
[2017-07-16] MEDS ORDERED: AMIODARONE HCL 540 MG in D5W 300 ML IV ONE (14:43)
[2017-07-16] MEDS ORDERED: AMIODARONE HCL 200 ML IV ONE (14:43)
--- NOTE | 2017-07-16 15:32 | HOSPPROG ---
Hospitalist Progress Note Assessment/Plan: * history of bladder cancer status post recent debridement with resulting ureteral obstruction * Status post right nephrostomy tube * Prior to discharge Urology would like antegrade stent placed by Interventional Radiology * His urologist is Dr. Lion [phone] (cell) * rapid AFib * No previous history * Echo looks generally okay * Probably related to stress and anemia * Had been on diltiazem with some moderate improvement * Will discontinue and load with amiodarone * Would not anticoagulate due to bleeding * worsening anemia * Unclear source * Difficult to believe that light pink urine from Lopez is the source * But has not had bowel movements so does not seem to have brisk upper GI bleed * Did have an episode of coffee-ground emesis though * Will need EGD - but will defer until tomorrow when hopefully AFib is resolved * history of hypertension Subjective: Went into AFib this morning. Not complaining of any chest pain or abdominal pain on or dizziness Objective: Vital Signs Temp Pulse Resp BP Pulse Ox 36.7 C 92 19 123/60 H 93 07/16/17 10:47 07/16/17 10:47 07/16/17 10:47 07/16/17 10:47 07/16/17 10:47 Microbiology 07/13/17 15:50 Gram Stain - Final Other - Aspirate Laboratory Results 07/16/17 03:53 07/16/17 03:53 07/15/17 07/16/17 07/17/17 05:59 05:59 05:59 Intake Total 3475 3514 750 Output Total 2915 1950 425 Balance 560 1564 325 PT 14.4 SEC (12.0-15.0) 07/12/17 23:30 INR 1.13 (0.83-1.16) 07/12/17 23:30 Discussed with Gastroenterology and Urology Tele personally viewed interpreted - rapid AFib - Physical Exam Constitutional: no apparent distress, appears nourished, not in pain Eyes: anicteric sclera, EOMI Ears, Nose, Mouth, Throat: moist mucous membranes, hearing normal Cardiovascular: irregularly irregular Respiratory: no respiratory distress, no rales or rhonchi, clear to auscultation Gastrointestinal: normoactive bowel sounds, soft, non-tender abdomen, no palpable masses Genitourinary: lopez in urethra (Light pink urine, nephrostomy yellow urine) Skin: warm Neurologic: AAOx3 Psychiatric: interacting appropriately, not anxious, not encephalopathic, thought process linear ICD10 Worksheet Patient Problems: Problems Problem Status Onset KARINA (acute kidney injury) Acute Dehydration Acute UTI (urinary tract infection) Acute 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
[2017-07-16] MEDS ORDERED: NS 500 ML IV ONE (15:42)
[2017-07-16 16:11] LABS: HEMATOCRIT 27.3 % (40.0-51.0)
[2017-07-16] MEDS: NS 1,000 ML IV SCH (19:04)
[2017-07-16] MEDS: ROSUVASTATIN CALCIUM 10 MG TAB PO SCH (20:35)
[2017-07-17] MEDS: NS 1,000 ML IV SCH (04:15)
[2017-07-17 04:55] LABS: ALANINE AMINOTRANSFERASE 29 IU/L (21-72); ALBUMIN 2.2 g/dL (3.5-5.0); ALKALINE PHOSPHATASE 90 IU/L (38-126); ANION GAP 6 mEq/L (8-16); ASPARTATE AMINOTRANSFERASE 32 IU/L (17-59); BILIRUBIN,TOTAL 0.4 mg/dL (0.1-1.4); CALCIUM 7.9 mg/dL (8.5-10.4); CARBON DIOXIDE 22 mEq/l (22-31); CHLORIDE 107 mEq/L (97-110); CREATININE 1.1 mg/dL (0.7-1.3); GLOMERULAR FILTRATION RATE > 60; GLUCOSE 85 mg/dL (70-100); MAGNESIUM 1.7 mg/dL (1.6-2.3); POTASSIUM 3.8 mEq/L (3.5-5.2); SODIUM 135 mEq/L (134-144); TOTAL PROTEIN 4.9 g/dL (6.3-8.2)
[2017-07-17 06:00] LABS: % IMMATURE GRANULYOCYTES 1.1 % (0.0-1.1); ABSOLUTE IMMATURE GRANULOCYTES 0.08 10^3/uL (0.00-0.10); ADD DIFF? NO; ADD MORPH? NO; ADD SCAN? NO; ATYPICAL LYMPHOCYTE FLAG 10 (0-99); FRAGMENT RBC FLAG 20 (0-99); HEMATOCRIT 26.2 % (40.0-51.0); LEFT SHIFT FLG 20 (0-99); LIPEMIA HEMOLYSIS FLAG 90 (0-99); MEAN CELL HEMOGLOBIN CONCENTR. 34.4 g/dL (32.4-36.7); MEAN PLATELET VOLUME 9.9 fL (8.7-11.7); PLATELET CLUMPS FLAG 10 (0-99); PLATELET COUNT 114 10^3/uL (150-400); RED BLOOD CELL COUNT 2.73 10^6/uL (4.40-6.38); RED CELL DISTRIBUTION WIDTH 13.7 % (11.5-15.2)
[2017-07-17] MEDS: LEVOTHYROXINE 75 MCG TAB PO SCH (06:01)
--- NOTE | 2017-07-17 09:22 | PDANEPAE ---
ANE History of Present Illness Anemia unknown cause ANE Past Medical History - Pulmonary History Hx Oxygen in Use at Home: No Hx Sleep Apnea: No Sleep Apnea Screening Result - Last Documented: Positive - Endocrine History Hx Diabetes: No - Chronic Pain History Chronic Pain: No ANE Review of Systems Review of Systems: - Systems Cardiac: Reports: irregular heart rate (Recent rapid a-fib) ANE Patient History - Allergies Allergies/Adverse Reactions: mitomycin Allergy (Verified 07/12/17 22:30) - Home Medications Home medications: home medication list seen and reviewed Home Medications: Diazepam [Valium 5 MG (*)] 5 mg PO TID 07/12/17 [Last Taken Unknown] Hydrocodone/Acetaminophen [[place] 5/325 (*)] 1 - 2 tab PO Q4H 07/12/17 [Last Taken Unknown] Levothyroxine [Synthroid 75 mcg (*)] 75 mcg PO DAILY06 07/12/17 [Last Taken Unknown] Ranitidine HCl [Zantac] 150 mg PO HS 07/12/17 [Last Taken Unknown] Rosuvastatin Calcium [Crestor] 10 mg PO HS 07/12/17 [Last Taken Unknown] - NPO status NPO Since - Liquids (Date): 07/17/17 NPO Since - Liquids (Time): 00:01 NPO Since - Solids (Date): 07/17/17 NPO Since - Solids (Time): 00:01 - Anes Hx Anes Hx: no prior problems - Smoking Hx Smoking Status: Former smoker - Alcohol Use Alcohol Use: None ANE Labs/Vital Signs - Labs Result Diagrams: 07/17/17 03:23 07/17/17 03:23 - Vital Signs Blood Pressure: 123/51 Heart Rate: 90 Respiratory Rate: 18 O2 Sat (%): 95 Height: 175.26 cm Weight: 83.6 kg ANE Physical Exam - Airway Neck exam: FROM Mallampati Score: Class 2 Mouth exam: normal dental/mouth exam - Pulmonary Pulmonary: no respiratory distress - Cardiovascular Cardiovascular: regular rate and rhythym - ASA Status ASA Status: III ANE Anesthesia Plan Anesthesia Plan: MAC
[2017-07-17] MEDS ORDERED: LR 1,000 ML IV ONE (09:27)
[2017-07-17] MEDS ORDERED: LIDOCAINE 2% 5 ML SDV ONE (09:31)
[2017-07-17] MEDS ORDERED: PROPOFOL 200 MG/20 ML VIAL ONE ×2 (09:31)
[2017-07-17] MEDS ORDERED: NALOXONE HCL 0.4 MG/ML INJ IVP PRN (09:50)
--- NOTE | 2017-07-17 09:52 | SUROPNOTE ---
ELY Operative Report - Surgery EGD Indication: hematemesis, anemia Medications: per anesthesia Description of Procedure: After informed consent was obtained, the patient was placed in the supine position. Anesthesia was administered by our anesthesia colleagues without complications. The forward viewing upper endoscope was advanced through the mouth and to the proximal duodenum. Retroflexed views in the gastric cardia were obtained. There were no acute complications. Findings: 1. Moderate esophagitis in the distal 1/3 of the esophagus - bx'd 2. Moderate gastritis throughout the stomach - bx'd 3. Multiple stomach polyps - sampled 4. Normal duodenum Impression/Recs: 1. Anemia - no clear UGI source of bleeding - esophagitis was notable, but not a clear source of anemia - defer any other GI w/u at this time - continue to follow H/H - may be multifactorial 2. Hematemesis - likely from gastritis and esophagitis - await bx results - PPI PO BID x 12 weeks, then consider QD thereafter - ok to advance diet as tolerated - will sign off, call with questions
--- NOTE | 2017-07-17 10:01 | POSTANESTH ---
Post Anesthetic Evaluation Cardiovascular Status: Normal, Stable Respiratory Status: Normal, Stable Level of Consciousness/Mental Status: Alert and Oriented Pain Control: Adequate, Prn Tx Ordered Nausea/Vomiting Control: Adequate, Prn Tx Ordered Complications Possibly Related to Anesthesia: None Noted
[2017-07-17] MEDS: SENNOSIDES/DOCUSATE SODIUM TAB PO SCH ×2 (12:42→19:55)
[2017-07-17] MEDS: METOPROLOL TARTRATE 25 MG TAB PO SCH ×2 (12:43→20:09)
[2017-07-17] MEDS: PANTOPRAZOLE SODIUM 40 MG TAB PO SCH ×2 (12:43→19:55)
--- NOTE | 2017-07-17 15:25 | HOSPPROG ---
Hospitalist Progress Note Assessment/Plan: * history of bladder cancer status post recent debridement with resulting ureteral obstruction * Status post right nephrostomy tube * Prior to discharge Urology would like antegrade stent placed by Interventional Radiology - have discussed with IR they will plan for tomorrow * His urologist is Dr. Lion [phone] (cell) * rapid AFib * No previous history * Echo looks generally okay * Probably related to stress and anemia * Converted to normal sinus rhythm * Will start low-dose metoprolol * Would not anticoagulate due to bleeding * anemia * Unclear source but has stabilized * Probably from esophagitis found on EGD * Continue PPI * history of hypertension Subjective: No new complaints. No bleeding Objective: Vital Signs Temp Pulse Resp BP Pulse Ox 36.8 C 93 12 118/71 92 07/17/17 15:06 07/17/17 15:06 07/17/17 15:06 07/17/17 15:06 07/17/17 15:06 Microbiology 07/13/17 15:50 Gram Stain - Final Other - Aspirate Laboratory Results 07/17/17 03:23 07/17/17 03:23 07/16/17 07/17/17 07/18/17 05:59 05:59 05:59 Intake Total 3514 2892 585 Output Total 1950 2745 500 Balance 1564 147 85 PT 14.4 SEC (12.0-15.0) 07/12/17 23:30 INR 1.13 (0.83-1.16) 07/12/17 23:30 Discussed with Gastroenterology and Urology and Interventional Radiology Tele personally viewed interpreted normal sinus rhythm - Physical Exam Constitutional: no apparent distress, appears nourished, not in pain Eyes: PERRL, anicteric sclera Ears, Nose, Mouth, Throat: moist mucous membranes, hearing normal Cardiovascular: regular rate and rhythym, no murmur, rub, or gallop Respiratory: no respiratory distress, no rales or rhonchi, clear to auscultation Gastrointestinal: normoactive bowel sounds, soft, non-tender abdomen, no palpable masses Skin: warm Neurologic: AAOx3 Psychiatric: interacting appropriately, not anxious, not encephalopathic ICD10 Worksheet Patient Problems: Problems Problem Status Onset KARINA (acute kidney injury) Acute Dehydration Acute UTI (urinary tract infection) Acute 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
[2017-07-17] MEDS: ROSUVASTATIN CALCIUM 10 MG TAB PO SCH (19:55)
[2017-07-18] MEDS: LEVOTHYROXINE 75 MCG TAB PO SCH (05:31)
[2017-07-18 09:43] LABS: HEMATOCRIT 27.1 % (40.0-51.0); HEMOGLOBIN 9.2 g/dL (13.7-17.5); MEAN CELL HEMOGLOBIN 32.2 pg (27.9-34.1); MEAN CELL HEMOGLOBIN CONCENTR. 33.9 g/dL (32.4-36.7); MEAN CELL VOLUME 94.8 fL (81.5-99.8); RED BLOOD CELL COUNT 2.86 10^6/uL (4.40-6.38); RED CELL DISTRIBUTION WIDTH 13.6 % (11.5-15.2)
[2017-07-18] MEDS: FUROSEMIDE 20 MG/2 ML VIAL IVP SCH ×3 (09:53→15:33)
[2017-07-18] MEDS: METOPROLOL TARTRATE 25 MG TAB PO SCH ×2 (09:58→20:27)
[2017-07-18] MEDS: PANTOPRAZOLE SODIUM 40 MG TAB PO SCH ×2 (09:59→20:27)
[2017-07-18] MEDS: SENNOSIDES/DOCUSATE SODIUM TAB PO SCH ×2 (09:59→20:29)
[2017-07-18 10:23] LABS: ANION GAP 8 mEq/L (8-16); CALCIUM 8.2 mg/dL (8.5-10.4); CARBON DIOXIDE 23 mEq/l (22-31); CHLORIDE 107 mEq/L (97-110); GLOMERULAR FILTRATION RATE > 60; GLUCOSE 99 mg/dL (70-100); POTASSIUM 3.9 mEq/L (3.5-5.2); SODIUM 138 mEq/L (134-144)
--- NOTE | 2017-07-18 11:49 | HOSPPROG ---
Hospitalist Progress Note Assessment/Plan: * history of bladder cancer status post recent debridement with resulting ureteral obstruction * Status post right nephrostomy tube * Having antegrade stent placed by Interventional Radiology today * dc lopez after diuresis * His urologist is Dr. Lion [phone] (cell) * mild fluid overload * Increased oxygen requirement * Sounds like he has effusions bilaterally * Will diurese * rapid AFib * No previous history * Echo looks generally okay * Probably related to stress and anemia * Converted to normal sinus rhythm * Will start low-dose metoprolol * Would not anticoagulate due to bleeding * anemia * Unclear source but has stabilized * Probably from esophagitis found on EGD * Continue PPI * history of hypertension Subjective: No new complaints. Feeling weak Objective: Vital Signs Temp Pulse Resp BP Pulse Ox 36.6 C 88 21 H 120/57 L 97 07/18/17 11:09 07/18/17 11:09 07/18/17 11:09 07/18/17 11:09 07/18/17 11:09 Microbiology 07/13/17 01:28 Blood Culture - Final Blood 07/13/17 15:50 Gram Stain - Final Other - Aspirate Laboratory Results 07/18/17 09:25 07/18/17 09:25 07/17/17 07/18/17 07/19/17 05:59 05:59 05:59 Intake Total 2892 2850 360 Output Total 2745 2140 1850 Balance 147 710 -1490 PT 14.4 SEC (12.0-15.0) 07/12/17 23:30 INR 1.13 (0.83-1.16) 07/12/17 23:30 Tele personally viewed interpreted normal sinus rhythm Discussed with urology - Physical Exam Constitutional: no apparent distress, appears nourished, not in pain Eyes: anicteric sclera, EOMI Ears, Nose, Mouth, Throat: moist mucous membranes, hearing normal, ears appear normal Cardiovascular: regular rate and rhythym Respiratory: no respiratory distress, reduced air movement (Decreased breath sounds 1/[address] both sides) Gastrointestinal: normoactive bowel sounds, soft, non-tender abdomen, no palpable masses Skin: warm Neurologic: AAOx3 Psychiatric: interacting appropriately, not anxious, not encephalopathic, thought process linear ICD10 Worksheet Patient Problems: Problems Problem Status Onset KARINA (acute kidney injury) Acute Dehydration Acute UTI (urinary tract infection) Acute 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
[2017-07-18] MEDS ORDERED: fentaNYL 100 MCG/2 ML INJ ONE (16:16)
[2017-07-18] MEDS ORDERED: MIDAZOLAM 2 MG/2 ML VIAL ONE (16:16)
[2017-07-18] MEDS ORDERED: IOPAMIDOL (ISOVUE-300) 100 ML BTL ONE (16:30)
--- NOTE | 2017-07-18 18:18 | POSTOPPROG ---
Post Op Note Date of Operation: 07/18/17 Surgeon: Altaf Gordon Anesthesia: IV Sedation Pre-op Diagnosis: Bladder CA Post-op Diagnosis: same Indication: obstructed right ureterovesical junction Procedure: Internal right ureteral stent 8F X 26cm. New right nephrostomy tube. Findings: Stenosis of right UVJ. Stent in good position. No string in neph tube. Inf/Abcess present in the surg proc area at time of surgery?: No EBL: Minimal Complications: 0 Drains: Nephrostomy (10 F)
[2017-07-18] MEDS: ROSUVASTATIN CALCIUM 10 MG TAB PO SCH (20:28)
[2017-07-19 05:02] LABS: % IMMATURE GRANULYOCYTES 1.4 % (0.0-1.1); ABSOLUTE IMMATURE GRANULOCYTES 0.09 10^3/uL (0.00-0.10); ADD DIFF? NO; ADD MORPH? NO; ADD SCAN? NO; ATYPICAL LYMPHOCYTE FLAG 20 (0-99); FRAGMENT RBC FLAG 0 (0-99); HEMATOCRIT 28.2 % (40.0-51.0); HEMOGLOBIN 9.4 g/dL (13.7-17.5); LEFT SHIFT FLG 20 (0-99); LIPEMIA HEMOLYSIS FLAG 80 (0-99); MEAN CELL HEMOGLOBIN 32.1 pg (27.9-34.1); MEAN CELL HEMOGLOBIN CONCENTR. 33.3 g/dL (32.4-36.7); MEAN CELL VOLUME 96.2 fL (81.5-99.8); MEAN PLATELET VOLUME 10.5 fL (8.7-11.7); PLATELET CLUMPS FLAG 0 (0-99); PLATELET COUNT 118 10^3/uL (150-400); RED BLOOD CELL COUNT 2.93 10^6/uL (4.40-6.38); RED CELL DISTRIBUTION WIDTH 13.7 % (11.5-15.2)
[2017-07-19 05:21] LABS: ANION GAP 11 mEq/L (8-16); CALCIUM 8.2 mg/dL (8.5-10.4); CARBON DIOXIDE 26 mEq/l (22-31); CHLORIDE 103 mEq/L (97-110); CREATININE 1.3 mg/dL (0.7-1.3); GLOMERULAR FILTRATION RATE 52; GLUCOSE 85 mg/dL (70-100); POTASSIUM 3.6 mEq/L (3.5-5.2); SODIUM 140 mEq/L (134-144)
[2017-07-19] MEDS: LEVOTHYROXINE 75 MCG TAB PO SCH (06:26)
[2017-07-19] MEDS: FUROSEMIDE 20 MG/2 ML VIAL IVP SCH ×2 (09:28→14:39)
[2017-07-19] MEDS: METOPROLOL TARTRATE 25 MG TAB PO SCH (09:32)
[2017-07-19] MEDS: PANTOPRAZOLE SODIUM 40 MG TAB PO SCH (09:32)
[2017-07-19] MEDS: SENNOSIDES/DOCUSATE SODIUM TAB PO SCH (09:34)
[2017-07-19 11:20] VITALS: BP 107/61; PULSE 101; RESP 20; TEMP 97.9; O2SAT 97
--- NOTE | 2017-07-19 13:55 | PDIAF ---
- Diagnosis Diagnosis: urinary obstruction Code Status: Full Code - Medication Management Discharge Medications: Medications to Continue on Transfer Hydrocodone/Acetaminophen [[place] 5/325 (*)] 1 - 2 tab PO Q4H 07/12/17 [Last Taken Unknown] Levothyroxine [Synthroid 75 mcg (*)] 75 mcg PO DAILY06 07/12/17 [Last Taken Unknown] Rosuvastatin Calcium [Crestor] 10 mg PO HS 07/12/17 [Last Taken Unknown] Diazepam [Valium 5 MG (*)] 5 mg PO PRN PRN #1 tab 07/19/17 [Last Taken Unknown] Metoprolol Tartrate [Lopressor 25 mg (*)] 12.5 mg PO BID #1 tab 07/19/17 [Last Taken Unknown] Pantoprazole Sodium [Protonix 40mg (*)] 40 mg PO DAILY #1 tab 07/19/17 [Last Taken Unknown] Discharge Medications: Refer to the Discharge Home Medication list for PRN reason. - Orders Services needed: Physical Therapy, Occupational Therapy - Follow Up Care Current Providers and Referrals: Gail Srivastava MD [Primary Care Provider] - As per Instructions Kris Lion MD [Medical Doctor] - 3-5 days
--- NOTE | 2017-07-19 14:28 | GDS ---
[f rep st] DISCHARGE SUMMARY DISCHARGE DIAGNOSES: 1. Right ureter obstruction. 2. History of bladder cancer with recent debridement. 3. Anemia secondary to acute blood loss. 4. Upper gastrointestinal bleed, probably related to esophagitis. 5. Transient rapid atrial fibrillation. 6. History of hypertension. HISTORY: This is an 89-year-old male with a history of bladder cancer, who periodically gets debride ments of his bladder. He had that prior to admission, but came in with nausea. HOSPITAL COURSE: Patient was noted to be in acute renal failure. This is due to significant right-s ided hydronephrosis at the level of the UV junction. This was probably related to some swelling post procedure. Nephrostomy tube was placed, and creatinine improved. His hospital course was then comp licated by episode of coffee-grounds emesis and worsening anemia. He had an EGD which showed esophag itis. His hemoglobin stabilized. He is continued on a PPI. Patient also had an episode of rapid atrial fibrillation. This converted fairly quickly. His echoca rdiogram was essentially normal. He is not a candidate for anticoagulation due to his bladder tumor and bleeding issues. He has been started on low-dose metoprolol and has remained in sinus rhythm. Per Urology request, antegrade stent was placed by Interventional Radiology. His nephrostomy tube wa s kept in and will be pulled by Urology next week. His Rivera was discontinued, and he has been able to urinate. He will go to a detention facility today. Greater than 30 minutes were spent on discharge. /[id number]/MODL
--- NOTE | 2017-07-21 17:05 | ASMTCMCOM ---
CM Note CM Note Notes: Met with patient and his daughter Maryjane ([phone]) to discuss discharge planning. PT/OT now recommending SNF (prior recommendation had been home care). Patient reluctant to go to SNF but daughter is firm. Referrals sent to [facility], and both facilities on-site today with liasons to meet with family. Both facilities accept patient. CM to faciliate discharge when patient is medically stable. Date Signed: 07/18/2017 03:17 PM Electronically Signed By:Tracy Nieto
--- NOTE | 2017-07-21 17:07 | ASMTCMCOM ---
CM Note CM Note Notes: CM DISCHARGE NOTE: Patient will discharge to [facility]. All paperwork faxed and received by facility. [facility] transport will pick patient up at 1545 today. YANE Fan to call report to facility. Date Signed: 07/19/2017 02:18 PM Electronically Signed By:Tracy Nieto
--- NOTE | 2017-07-23 17:21 | PQFORM ---
PHYSICIAN QUERY FORM Needs Your Response This query form is being sent to you to assure this patient record is coded properly. Please respond to the question below: [employer] MANAGER QUESTION: Dear Dr. Francis, In reviewing this patients medical record, it is noted in Dr. Francisco's EGD report that the patient's 'Hematemesis' is 'Likely from both gastritis and esophagitis.' In the discharge summary the patient was noted to only have ' upper gastrointestinal bleed, 'probably related to esophagitis,' After study, should the diagnosis of 'gastritis w/ bleeding' be included in the discharge summary? Yes __x__ No ____ Other more appropriate diagnosis Unable to determine thank you ZEKE Gonzales HIM/Coding Dept. [phone] INSTRUCTIONS FOR RESPONSE: Answer question by clicking on the "Edit Document" button. Move cursor to area below the stars. When complete, hit "Save." Click on the "Sign" button, then click "Sign" again. Type in your PIN and hit "Enter." MTDD
--- NOTE | 2017-07-25 15:39 | ASDISCHSUM ---
Discharge Information Plan Status:SNF Medically Cleared to Leave: Discharge Date:07/19/2017 04:27 PM D/C Disposition:[facility] ADT D/C Disposition:[facility] Facility Projected Discharge Date:07/16/2017 12:00 AM Transportation at D/C:Wheelchair Van Discharge Delay Reason: Follow-Up Date:07/16/2017 12:00 AM Discharge Slot: Final Diagnosis: Placement Information Referral Type:*Home Health Care Services Referral ID:[id number] Provider Name: Address 1: Phone Number: Address 2: Fax Number: City: Selection Factors: State: Referral Type:*Retirement/SNF Referral ID:[id number] Provider Name:[facility] Address 1:[address] Address 2: City:[place] Selection Factors: State:[place] Patient Contact Information Contact Name:LAWRENCE Relationship: Address:[address] Work Phone: City:[place] Alternate Phone: State/Zip Code:[place] [address] Email: Financial Information Financial Class:Medicare Advantage Plans Primary Plan Desc:[facility] [employer] Primary Plan Number:[id number] Secondary Plan Desc: Secondary Plan Number: Assessment Information [facility] Initial CM Assessment Discharge Plan Comments Coordination Status Comments Notes: Reviewed chart, spoke w/RN, unable to meet w/pt due to procedure scheduled for today. Pt has strong family support. D/c needs unclear at this time. Case management anticipating nursing home administrator. No orders for PT or OT. RN reports high O2 needs w/probable need for home O2 at d/c. RN to contact respiratory therapy. Case management to follow. Date Signed: 07/13/2017 04:48 PM Electronically Signed By:Jewels Brennan RN [facility] CM Progress Note CM Note CM Note Notes: Met w/pt and daughter Maryjane Jiménez ([phone]) who is visiting from [place]. Son Iftikhar Kraft lives locally and can be reached at [phone]. Pt lives at [facility] and utilizes house keeping services, has meals at the dining room, buys groceries and prepares own breakfast. Discussed discharge recommendations. Pt agrees home health RN is necessary for assessment and monitoring of nephrostomy tube. In addition pt requested [employer] services for assistance w/ADL's. Case Management d/c poc: Home to [facility] w/ home health RN and FAN MAIL [employer]OR. Faxed referrals to several home health agencies, waiting to hear if pt has been accepted. Case Management to follow. Date Signed: 07/14/2017 11:52 AM Electronically Signed By:Jewels Brennan RN [facility] CM Progress Note CM Note CM Note Notes: Met with patient and his daughter Maryjane ([phone]) to discuss discharge planning. PT/OT now recommending SNF (prior recommendation had been home care). Patient reluctant to go to SNF but daughter is firm. Referrals sent to [facility] and [facility], and both facilities on-site today with liasons to meet with family. Both facilities accept patient. CM to faciliate discharge when patient is medically stable. Date Signed: 07/18/2017 03:17 PM Electronically Signed By:Tracy Nieto RN [facility] CM Progress Note CM Note CM Note Notes: CM DISCHARGE NOTE: Patient will discharge to [facility]. All paperwork faxed and received by facility. [facility] transport will pick patient up at 1545 today. YANE Fan to call report to facility. Date Signed: 07/19/2017 02:18 PM Electronically Signed By:Tracy Nieto RN Intervention Information Intervention Type:*IM-Signed Date of Service:07/17/2017 02:20 PM Patient Type:Inpatient Staff Member:Kacy Tripathi Hours: Discipline: Severity: Comment:
== END 2017-07-19 16:27 | DRG 659 ==
LOC: F2W 07-13 02:17
PROVIDERS: ADMIT Student in an Organized Health Care Education/Training Program; ATTEND Student in an Organized Health Care Education/Training Program
PROC: 0T9330Z Drainage of Right Kidney Pelvis with Drainage Device, Percutaneous Approach (ICD-10-PCS; principal; 2017-07-13 16:00)
PROC: 0DB58ZX Excision of Esophagus, Via Natural or Artificial Opening Endoscopic, Diagnostic (ICD-10-PCS; 2017-07-17)
PROC: 0DB68ZX Excision of Stomach, Via Natural or Artificial Opening Endoscopic, Diagnostic (ICD-10-PCS; 2017-07-17)
PROC: 0TW530Z Revision of Drainage Device in Kidney, Percutaneous Approach (ICD-10-PCS; 2017-07-18)
PROC: 0T763DZ Dilation of Right Ureter with Intraluminal Device, Percutaneous Approach (ICD-10-PCS; 2017-07-18)
DX: N99.89 Other postprocedural complications and disorders of genitourinary system (principal); K29.71 Gastritis, unspecified, with bleeding; N17.9 Acute kidney failure, unspecified; D62 Acute posthemorrhagic anemia; N13.0 Hydronephrosis with ureteropelvic junction obstruction; K22.8 Other specified diseases of esophagus; I48.91 Unspecified atrial fibrillation; I10 Essential (primary) hypertension; E78.5 Hyperlipidemia, unspecified; N40.1 Benign prostatic hyperplasia with lower urinary tract symptoms; E86.0 Dehydration; K20.9 Esophagitis, unspecified; K31.7 Polyp of stomach and duodenum; Z87.891 Personal history of nicotine dependence; Z85.51 Personal history of malignant neoplasm of bladder
CPT/HCPCS: 96365; 97116-GP; 97161-GP; 97165-GO; 97530-GP; C1729; C1769; C1894; G8978-GP-CJ; G8979-GP-CI; G8987-GO-CJ; G8988-GO-CI; J0153; J0282; J0696; J1170; J1644; J1940; J2250; J2310; J2405; J2704; J3010; J3475; Q9967